=== PATIENT | male | born 1985 | race African-American/Black ===

== ENCOUNTER 2017-03-07 14:12 | Emergency (ER) | payer OTHER ==
[~2017-03-07] VITALS: Ht 180.3 cm; Wt 130.9 kg
[2017-03-07] MEDS ORDERED: PROP20 PO (15:14)
[2017-03-07] MEDS ORDERED: DIVA125T PO (15:14)
[2017-03-07 15:32] LABS: BASOPHILS % (AUTO) 0.4 % (0.0-2.0); HEMATOCRIT 43.9 % (41-53); HEMOGLOBIN 14.7 g/dL (13.5-17.5); LYMPHOCYTES % (AUTO) 30.5 % (22.0-44.0); MEAN CORPUSCULAR HGB CONC 33.5 G/dL (31.0-37.0); MEAN CORPUSCULAR VOLUME 87 fL (80-100); MONOCYTES # (AUTO) 0.3 K/uL (0.1-1.0); MONOCYTES % (AUTO) 4.2 % (2.0-9.0); NEUTROPHILS # (AUTO) 4.2 K/uL (1.8-7.7); NEUTROPHILS % (AUTO) 62.9 % (40.0-70.0); PLATELET COUNT (AUTO) 195 K/uL (150-450); RED BLOOD CELL COUNT(AUTO) 5.07 MIL/uL (4.50-5.90); RED CELL DISTRIBUTION WIDTH 15.7 % (11.5-14.5); WHITE BLOOD COUNT (AUTO) 6.6 K/uL (4.5-11.0)
[2017-03-07 15:37] LABS: ANION GAP 6 mmol/L (8-16); CALCIUM, TOTAL 9.5 mg/dL (8.8-10.5); CARBON DIOXIDE 30 mmol/L (22-29); CHLORIDE 101 mmol/L (98-107); CREATININE 0.95 mg/dL (0.60-1.30); GLOMERULAR FILTR. RATE CALC > 60 mL/min (>60); POTASSIUM 4.1 mmol/L (3.5-5.1); SODIUM SERUM 137 mmol/L (136-145); UREA NITROGEN, BLOOD 12 mg/dL (7-18)
[2017-03-07 15:43] LABS: ALANINE AMINOTRANSFERASE 13 U/L (12-78); ALBUMIN 4.2 g/dL (3.4-5.0); ASPARTATE AMINOTRANSFERASE 5 U/L (15-37); BILIRUBIN,TOTAL 0.6 mg/dL (0.1-1.0)
[2017-03-07 16:38] LABS: VALPROIC ACID 88 mcg/mL (50-100)
[2017-03-07] MEDS ORDERED: LORazepam 2 MG TABLET PO ONE (16:45)
[2017-03-07] MEDS ORDERED: HALOPERIDOL 5 MG TABLET PO ONE (16:45)
[2017-03-07 17:47] VITALS: BP 117/63
== END 2017-03-07 18:24 | disposition home or self-care (01) ==
LOC: EMS 14:15
DX: F20.9 Schizophrenia, unspecified (principal); R45.851 Suicidal ideations; F32.9 Major depressive disorder, single episode, unspecified
CPT/HCPCS: 36415; 80053; 80164; 80307; 85025; 99284; G0480

== ENCOUNTER 2018-11-14 16:48 | Inpatient (IN) | payer MEDICAID, OTHER ==
[~2018-11-14] VITALS: Ht 177.8 cm; Wt 100.2 kg
[~2018-11-14 16:48] MED LIST: DIVA125T32 PO; PROP20TA18 PO
[2018-11-14] MEDS ORDERED: HALOPERIDOL 5 MG TABLET PO PRN (19:45)
[2018-11-14] MEDS ORDERED: LORazepam 2 MG TABLET PO PRN (19:45)
[2018-11-14] MEDS ORDERED: HALOPERIDOL 5 MG TABLET PO ONE (19:45)
[2018-11-14] MEDS ORDERED: ZOLPIDEM TARTRATE 10 MG TABLET PO PRN (19:45)
[2018-11-14 19:55] LABS: BASOPHILS % (AUTO) 0.8 % (0.0-2.0); EOSINOPHILS % (AUTO) 0.9 % (1.0-6.0); HEMATOCRIT 47.9 % (41-53); MEAN CORPUSCULAR HEMOGLOBIN 29.7 pg (26.0-34.0); MEAN CORPUSCULAR HGB CONC 33.5 G/dL (31.0-37.0); MEAN CORPUSCULAR VOLUME 89 fL (80-100); MONOCYTES # (AUTO) 0.5 K/uL (0.1-1.0); MONOCYTES % (AUTO) 4.8 % (2.0-9.0); NEUTROPHILS # (AUTO) 7.2 K/uL (1.8-7.7); NEUTROPHILS % (AUTO) 73.5 % (40.0-70.0); PLATELET COUNT (AUTO) 218 K/uL (150-450); RED CELL DISTRIBUTION WIDTH 14.6 % (11.5-14.5)
[2018-11-14 20:08] LABS: AMPHET/METH SCREEN,URINE POSITIVE (NEGATIVE); BARBITURATE SCREEN, URINE NEGATIVE (NEGATIVE); BENZODIAZEPINES SCREEN,URINE NEGATIVE (NEGATIVE); CANNABINOID SCREEN,URINE POSITIVE (NEGATIVE); COCAINE SCREEN,URINE NEGATIVE (NEGATIVE); METHADONE SCREEN, URINE NEGATIVE (NEGATIVE); OPIATE SCREEN,URINE NEGATIVE (NEGATIVE)
[2018-11-14 20:15] LABS: ANION GAP 12 mmol/L (8-16); CALCIUM, TOTAL 9.5 mg/dL (8.8-10.5); CARBON DIOXIDE 25 mmol/L (22-29); CHLORIDE 102 mmol/L (98-107); CREATININE 1.02 mg/dL (0.60-1.30); GLOMERULAR FILTR. RATE CALC > 60 mL/min (>60); GLUCOSE,RANDOM 105 mg/dL (70-110); POTASSIUM 4.2 mmol/L (3.5-5.1); SODIUM SERUM 139 mmol/L (136-145); UREA NITROGEN, BLOOD 14 mg/dL (7-18)
[2018-11-14 20:19] LABS: PHENCYCLIDINE SCREEN,URINE NEGATIVE (NEGATIVE)
[2018-11-14 20:30] LABS: ALANINE AMINOTRANSFERASE 11 U/L (12-78); ALBUMIN 4.3 g/dL (3.4-5.0); ALKALINE PHOSPHATASE 62 U/L (46-116); BILIRUBIN,TOTAL 0.8 mg/dL (0.1-1.0); CHOL/HDL RATIO 5.1 (4.2-7.3); CHOLESTEROL 118 mg/dL (131-200); FREE T4 (FREE THYROXINE) 0.92 ng/dL (0.76-1.46); HDL CHOLESTEROL 23 mg/dL (40-60); LDL CHOL (CALC.) 29 mg/dL (0-130); TOTAL PROTEIN, SERUM 7.4 g/dL (6.4-8.2); TRIGLYCERIDES 328 mg/dL (15-150)
[2018-11-14 20:45] LABS: ASPARTATE AMINOTRANSFERASE 15 U/L (15-37); VALPROIC ACID < 3 mcg/mL (50-100)
[2018-11-14 21:37] VITALS: BP 129/62
[2018-11-15 08:05] VITALS: BP 121/65
[2018-11-15] MEDS ORDERED: ONDANSETRON HCL 4 MG TABLET PO PRN (10:00)
[2018-11-15] MEDS ORDERED: LOPERAMIDE HCL 2 MG CAPSULE PO PRN (10:00)
[2018-11-15] MEDS ORDERED: ACETAMINOPHEN 325 MG TABLET PO PRN (10:00)
[2018-11-15] MEDS ORDERED: IBUPROFEN 600 MG TABLET PO PRN (10:00)
[2018-11-15] MEDS ORDERED: BACITRACIN 28.4 GM OINTMENT TP PRN (10:00)
[2018-11-15] MEDS ORDERED: BENZOCAINE/MENTHOL LOZENGE MM PRN (10:00)
[2018-11-15] MEDS ORDERED: ALBUTEROL SULFATE HFA 90 MCG/PUFF 8 GM INHALER IH PRN (10:00)
[2018-11-15] MEDS ORDERED: MAGNESIUM HYDROXIDE SUSPENSION 30 ML UDCUP PO PRN (10:00)
[2018-11-15] MEDS ORDERED: CloNIDine HCL 0.1 MG TABLET PO PRN (10:00)
[2018-11-15] MEDS ORDERED: MAG HYDROX/AL HYDROX/SIMETH ES 30 ML SUSPENSION UDCUP PO PRN (10:00)
[2018-11-15] MEDS ORDERED: PETROLATUM,WHITE 28 GM JELLY TP PRN (10:00)
[2018-11-15] MEDS: RisperiDONE 1 MG TABLET PO SCH (16:30)
[2018-11-15 16:42] VITALS: BP 117/71
[2018-11-16 08:10] VITALS: BP 111/75
[2018-11-16] MEDS ORDERED: OMEPRAZOLE 20 MG CAPSULE PO SCH (09:00)
[2018-11-16] MEDS ORDERED: DOCUSATE SODIUM 100 MG CAPSULE PO SCH (09:00)
[2018-11-16] MEDS: RisperiDONE 1 MG TABLET PO SCH ×2 (10:18→16:19)
[2018-11-16] MEDS ORDERED: RISP1 PO (19:36)
[2018-11-16] MEDS ORDERED: DSS100 PO (19:37)
[2018-11-16] MEDS ORDERED: OMEP20 PO (19:37)
== END 2018-11-16 20:45 | disposition home or self-care (01) | DRG 750 ==
LOC: EMS 16:51 → 3EI 20:00
PROVIDERS: ADMIT Psychiatry & Neurology Psychiatry; ATTEND Psychiatry & Neurology Psychiatry
DX: F25.9 Schizoaffective disorder, unspecified (principal); R45.851 Suicidal ideations; Z91.14 Patient's other noncompliance with medication regimen; E78.1 Pure hyperglyceridemia; F17.200 Nicotine dependence, unspecified, uncomplicated; F41.9 Anxiety disorder, unspecified; G47.00 Insomnia, unspecified; K21.9 Gastro-esophageal reflux disease without esophagitis; K59.00 Constipation, unspecified
CPT/HCPCS: 83036; 84439; 84443; 86592; 87491; 87591; 90686; G0480

== ENCOUNTER 2018-12-15 13:27 | Inpatient (IN) | payer MEDICAID, OTHER ==
[~2018-12-15] VITALS: Ht 177.8 cm; Wt 99.7 kg
[~2018-12-15 13:27] MED LIST changes: -DIVA125T32 PO; +DSS100 PO; +OMEP20 PO; -PROP20TA18 PO; +RISP1 PO
[2018-12-15] MEDS ORDERED: HALO1 PO (13:43)
[2018-12-15] MEDS ORDERED: SERT50TA12 PO (13:43)
[2018-12-15] MEDS ORDERED: GABA-529 PO (13:43)
[2018-12-15] MEDS ORDERED: TRAZ-220 PO (13:43)
[2018-12-15] MEDS ORDERED: LORazepam 2 MG/ML VIAL IM ONE (13:45)
[2018-12-15] MEDS ORDERED: DiphenhydrAMINE HCL 50 MG/ML VIAL IM ONE (13:45)
[2018-12-15] MEDS ORDERED: HALOPERIDOL LACTATE 5 MG/ML VIAL IM ONE (13:45)
[2018-12-15 13:54] LABS: BASOPHILS % (AUTO) 0.6 % (0.0-2.0); EOSINOPHILS % (AUTO) 1.6 % (1.0-6.0); HEMATOCRIT 49.9 % (41-53); HEMOGLOBIN 16.4 g/dL (13.5-17.5); LYMPHOCYTES # (AUTO) 1.3 K/uL (1.0-4.8); LYMPHOCYTES % (AUTO) 16.9 % (22.0-44.0); MEAN CORPUSCULAR HEMOGLOBIN 29.3 pg (26.0-34.0); MEAN CORPUSCULAR HGB CONC 32.9 G/dL (31.0-37.0); MEAN CORPUSCULAR VOLUME 89 fL (80-100); MONOCYTES # (AUTO) 0.4 K/uL (0.1-1.0); MONOCYTES % (AUTO) 4.7 % (2.0-9.0); NEUTROPHILS # (AUTO) 5.8 K/uL (1.8-7.7); NEUTROPHILS % (AUTO) 76.2 % (40.0-70.0); PLATELET COUNT (AUTO) 200 K/uL (150-450); RED CELL DISTRIBUTION WIDTH 14.5 % (11.5-14.5)
[2018-12-15 14:14] LABS: ANION GAP 11 mmol/L (8-16); CALCIUM, TOTAL 9.3 mg/dL (8.8-10.5); CARBON DIOXIDE 26 mmol/L (22-29); CHLORIDE 101 mmol/L (98-107); CREATININE 0.97 mg/dL (0.60-1.30); GLOMERULAR FILTR. RATE CALC > 60 mL/min (>60); GLUCOSE,RANDOM 105 mg/dL (70-110); SODIUM SERUM 138 mmol/L (136-145); UREA NITROGEN, BLOOD 9 mg/dL (7-18)
[2018-12-15 14:14] LABS: AMPHET/METH SCREEN,URINE NEGATIVE (NEGATIVE); BARBITURATE SCREEN, URINE NEGATIVE (NEGATIVE); BENZODIAZEPINES SCREEN,URINE NEGATIVE (NEGATIVE); CANNABINOID SCREEN,URINE NEGATIVE (NEGATIVE); COCAINE SCREEN,URINE NEGATIVE (NEGATIVE); METHADONE SCREEN, URINE NEGATIVE (NEGATIVE); OPIATE SCREEN,URINE NEGATIVE (NEGATIVE)
[2018-12-15 14:17] LABS: PHENCYCLIDINE SCREEN,URINE NEGATIVE (NEGATIVE)
[2018-12-15 14:20] LABS: ALANINE AMINOTRANSFERASE 17 U/L (12-78); ALBUMIN 4.5 g/dL (3.4-5.0); ALKALINE PHOSPHATASE 52 U/L (46-116); ASPARTATE AMINOTRANSFERASE 15 U/L (15-37); BILIRUBIN,TOTAL 0.5 mg/dL (0.1-1.0)
[2018-12-15 19:55] LABS: APPEARANCE,URINE CLEAR (CLEAR); BILIRUBIN,URINE NEGATIVE (NEGATIVE); GLUCOSE, URINE (UA) NEGATIVE (NEGATIVE); KETONES,URINE NEGATIVE (NEGATIVE); LEUKOCYTE ESTERASE ,URINE NEGATIVE (NEGATIVE); NITRATE,URINE NEGATIVE (NEGATIVE); OCCULT BLOOD,URINE NEGATIVE (NEGATIVE); PROTEIN,URINE NEGATIVE (NEGATIVE); UROBILINOGEN,URINE 0.2 mg/dL (<=1.0)
[2018-12-16 05:36] LABS: CHOL/HDL RATIO 4.5 (4.2-7.3)
[2018-12-16] MEDS: HALOPERIDOL 5 MG TABLET PO PRN (07:45)
[2018-12-16] MEDS: LORazepam 2 MG TABLET PO PRN (07:45)
[2018-12-16 16:27] VITALS: BP 131/88
[2018-12-16] MEDS ORDERED: ALBUTEROL SULFATE HFA 90 MCG/PUFF 8 GM INHALER IH PRN (18:00)
[2018-12-16] MEDS: NICOTINE 21 MG/24 HOUR PATCH TD SCH (18:36)
[2018-12-17 00:15] VITALS: BP 129/67
[2018-12-17] MEDS: ZOLPIDEM TARTRATE 10 MG TABLET PO PRN (00:20)
[2018-12-17] MEDS: HALOPERIDOL 5 MG TABLET PO PRN ×2 (00:20→09:10)
[2018-12-17] MEDS: OMEPRAZOLE 20 MG CAPSULE PO SCH (07:05)
[2018-12-17 08:00] VITALS: BP 118/64
[2018-12-17] MEDS: NICOTINE 21 MG/24 HOUR PATCH TD SCH (09:10)
[2018-12-17] MEDS: LORazepam 2 MG TABLET PO PRN (09:10)
[2018-12-17] MEDS: GABAPENTIN 100 MG CAPSULE PO SCH (09:10)
[2018-12-17] MEDS: SERTRALINE HCL 50 MG TABLET PO SCH (12:45)
[2018-12-17] MEDS: RisperiDONE 1 MG TABLET PO SCH (16:03)
[2018-12-17 16:30] VITALS: BP 120/74
[2018-12-17] MEDS ORDERED: TraZODone HCL 100 MG TABLET PO SCH (21:00)
[2018-12-18 01:26] VITALS: BP 117/63
[2018-12-18] MEDS: ZOLPIDEM TARTRATE 10 MG TABLET PO PRN (01:41)
[2018-12-18] MEDS: OMEPRAZOLE 20 MG CAPSULE PO SCH (07:00)
[2018-12-18] MEDS: RisperiDONE 1 MG TABLET PO SCH (07:56)
[2018-12-18] MEDS: NICOTINE 21 MG/24 HOUR PATCH TD SCH (07:56)
[2018-12-18] MEDS: HALOPERIDOL 5 MG TABLET PO PRN ×2 (07:56→12:46)
[2018-12-18] MEDS: SERTRALINE HCL 50 MG TABLET PO SCH (07:56)
[2018-12-18] MEDS: GABAPENTIN 100 MG CAPSULE PO SCH (07:56)
[2018-12-18] MEDS: LORazepam 2 MG TABLET PO PRN (07:56)
[2018-12-18 08:00] VITALS: BP 117/60
== END 2018-12-18 15:30 | disposition home or self-care (01) | DRG 750 ==
LOC: EMS 13:28 → 3EC 12-16 14:38
PROVIDERS: ADMIT Psychiatry & Neurology Psychiatry; ATTEND Psychiatry & Neurology Psychiatry
DX: F20.9 Schizophrenia, unspecified (principal); E78.1 Pure hyperglyceridemia; F17.200 Nicotine dependence, unspecified, uncomplicated; G47.00 Insomnia, unspecified; K21.9 Gastro-esophageal reflux disease without esophagitis; K59.00 Constipation, unspecified
CPT/HCPCS: 87081; 96372; G0480; J1200; J1630; J2060

== ENCOUNTER 2020-05-11 00:38 | Inpatient (IN) | payer MEDICAID, OTHER ==
[~2020-05-11] VITALS: Ht 177.8 cm; Wt 90.4 kg
[~2020-05-11 00:38] MED LIST changes: -DSS100 PO; +GABA-1216 PO; -OMEP20 PO; -RISP1 PO; +RISP1TAB27 PO; +SERT50TA12 PO; +TRAZ-257 PO
[2020-05-11 02:32] LABS: BASOPHILS % (AUTO) 0.7 % (0.0-2.0); EOSINOPHILS % (AUTO) 1.2 % (1.0-6.0); HEMOGLOBIN 14.2 g/dL (13.5-17.5); LYMPHOCYTES # (AUTO) 1.7 K/uL (1.0-4.8); LYMPHOCYTES % (AUTO) 15.8 % (22.0-44.0); MEAN CORPUSCULAR HEMOGLOBIN 29.7 pg (26.0-34.0); MEAN CORPUSCULAR HGB CONC 33.8 G/dL (31.0-37.0); MEAN CORPUSCULAR VOLUME 88 fL (80-100); MONOCYTES # (AUTO) 0.8 K/uL (0.1-1.0); MONOCYTES % (AUTO) 7.3 % (2.0-9.0); NEUTROPHILS # (AUTO) 8.2 K/uL (1.8-7.7); PLATELET COUNT (AUTO) 198 K/uL (150-450); RED BLOOD CELL COUNT(AUTO) 4.79 MIL/uL (4.50-5.90); RED CELL DISTRIBUTION WIDTH 14.4 % (11.5-14.5)
[2020-05-11 02:40] LABS: ANION GAP 6 mmol/L (8-16); CARBON DIOXIDE 28 mmol/L (22-29); CHLORIDE 99 mmol/L (98-107); CREATININE 0.98 mg/dL (0.60-1.30); GLOMERULAR FILTR. RATE CALC > 60 mL/min (>60); GLUCOSE,RANDOM 89 mg/dL (70-110); POTASSIUM 3.3 mmol/L (3.5-5.1); SODIUM SERUM 133 mmol/L (136-145); UREA NITROGEN, BLOOD 14 mg/dL (7-18)
[2020-05-11 02:49] LABS: LACTIC ACID 1.7 mmol/L (0.4-2.0)
[2020-05-11 03:00] LABS: ALANINE AMINOTRANSFERASE 23 U/L (12-78); ALKALINE PHOSPHATASE 60 U/L (46-116); ASPARTATE AMINOTRANSFERASE 26 U/L (15-37); BILIRUBIN,TOTAL 1.2 mg/dL (0.1-1.0); CREATINE KINASE, TOTAL ONLY 749 U/L (39-308); TOTAL PROTEIN, SERUM 7.5 g/dL (6.4-8.2)
[2020-05-11] MEDS ORDERED: LORazepam 2 MG/ML VIAL IM ONE ×2 (03:30→20:00)
[2020-05-11] MEDS ORDERED: DiphenhydrAMINE HCL 50 MG/ML VIAL IM ONE ×2 (03:30→20:00)
[2020-05-11] MEDS ORDERED: HALOPERIDOL LACTATE 5 MG/ML VIAL IM ONE ×2 (03:30→20:00)
[2020-05-11] MEDS ORDERED: POTASSIUM CHLORIDE 10% 40 MEQ/30 ML LIQUID UDCUP PO ONE ×2 (05:45→10:00)
[2020-05-11 05:57] LABS: APPEARANCE,URINE CLEAR (CLEAR); BILIRUBIN,URINE NEGATIVE (NEGATIVE); GLUCOSE, URINE (UA) NEGATIVE (NEGATIVE); KETONES,URINE TRACE mg/dL (NEGATIVE); LEUKOCYTE ESTERASE ,URINE NEGATIVE (NEGATIVE); NITRATE,URINE NEGATIVE (NEGATIVE); OCCULT BLOOD,URINE NEGATIVE (NEGATIVE); PROTEIN,URINE NEGATIVE (NEGATIVE); UROBILINOGEN,URINE 0.2 mg/dL (<=1.0)
[2020-05-11 06:03] LABS: AMPHET/METH SCREEN,URINE NEGATIVE (NEGATIVE); BARBITURATE SCREEN, URINE NEGATIVE (NEGATIVE); BENZODIAZEPINES SCREEN,URINE NEGATIVE (NEGATIVE); CANNABINOID SCREEN,URINE NEGATIVE (NEGATIVE); COCAINE SCREEN,URINE NEGATIVE (NEGATIVE); METHADONE SCREEN, URINE NEGATIVE (NEGATIVE); OPIATE SCREEN,URINE NEGATIVE (NEGATIVE); PHENCYCLIDINE SCREEN,URINE NEGATIVE (NEGATIVE)
[2020-05-11 08:15] VITALS: BP 112/85
[2020-05-11] MEDS ORDERED: OMEPRAZOLE 20 MG CAPSULE PO PRN (08:15)
[2020-05-11] MEDS ORDERED: MAG HYDROX/AL HYDROX/SIMETH ES 30 ML SUSPENSION UDCUP PO PRN (08:15)
[2020-05-11] MEDS ORDERED: CloNIDine HCL 0.1 MG TABLET PO PRN (08:15)
[2020-05-11] MEDS ORDERED: ACETAMINOPHEN 325 MG TABLET PO PRN (08:15)
[2020-05-11] MEDS ORDERED: DOCUSATE SODIUM 100 MG CAPSULE PO PRN (08:15)
[2020-05-11] MEDS ORDERED: ONDANSETRON HCL 4 MG TABLET PO PRN (08:15)
[2020-05-11] MEDS ORDERED: LOPERAMIDE HCL 2 MG CAPSULE PO PRN (08:15)
[2020-05-11] MEDS ORDERED: BACITRACIN 28 GM OINTMENT TP PRN (08:15)
[2020-05-11] MEDS ORDERED: IBUPROFEN 600 MG TABLET PO PRN (08:15)
[2020-05-11] MEDS ORDERED: BENZOCAINE/MENTHOL LOZENGE PO PRN (08:15)
[2020-05-11] MEDS ORDERED: PETROLATUM,WHITE 28 GM JELLY TP PRN (08:15)
[2020-05-11] MEDS ORDERED: ALBUTEROL SULFATE HFA 90 MCG/PUFF 8 GM INHALER IH PRN (08:15)
[2020-05-11] MEDS ORDERED: MAGNESIUM HYDROXIDE SUSPENSION 30 ML UDCUP PO PRN (08:15)
[2020-05-11 11:08] VITALS: BP 112/85
[2020-05-11 16:15] VITALS: BP 119/67
[2020-05-11] MEDS: RisperiDONE 2 MG TABLET PO SCH (16:26)
[2020-05-11] MEDS: DIVALPROEX SODIUM 500 MG DR TABLET PO SCH (16:26)
[2020-05-11] MEDS ORDERED: DiphenhydrAMINE HCL 50 MG/ML VIAL ONE (19:45)
[2020-05-11] MEDS ORDERED: HALOPERIDOL LACTATE 5 MG/ML VIAL ONE (19:45)
[2020-05-11] MEDS ORDERED: LORazepam 2 MG/ML VIAL ONE (19:45)
[2020-05-12 07:37] LABS: CHOL/HDL RATIO 3.2 (4.2-7.3); POTASSIUM 4.2 mmol/L (3.5-5.1)
[2020-05-12] MEDS: RisperiDONE 2 MG TABLET PO SCH ×2 (08:33→16:08)
[2020-05-12] MEDS: DIVALPROEX SODIUM 500 MG DR TABLET PO SCH ×2 (08:33→16:08)
[2020-05-12 09:22] VITALS: BP 117/66
[2020-05-12] MEDS: LORazepam 2 MG TABLET PO PRN (09:31)
[2020-05-12] MEDS: HALOPERIDOL 5 MG TABLET PO PRN (09:32)
[2020-05-12 16:08] VITALS: BP 106/70
[2020-05-13] MEDS: HALOPERIDOL 5 MG TABLET PO PRN ×2 (07:30→12:48)
[2020-05-13] MEDS: DIVALPROEX SODIUM 500 MG DR TABLET PO SCH ×2 (07:30→17:04)
[2020-05-13] MEDS: RisperiDONE 2 MG TABLET PO SCH ×2 (07:30→17:04)
[2020-05-13] MEDS: LORazepam 2 MG TABLET PO PRN ×2 (07:30→12:48)
[2020-05-13 08:09] VITALS: BP 137/83
[2020-05-13 16:09] VITALS: BP 131/69
[2020-05-14] MEDS: DIVALPROEX SODIUM 500 MG DR TABLET PO SCH ×2 (07:53→16:27)
[2020-05-14] MEDS: RisperiDONE 2 MG TABLET PO SCH ×2 (07:53→16:27)
[2020-05-14] MEDS: HALOPERIDOL 5 MG TABLET PO PRN (07:53)
[2020-05-14] MEDS: LORazepam 2 MG TABLET PO PRN ×2 (07:53→18:06)
[2020-05-14 09:42] VITALS: BP 99/56
[2020-05-14 16:52] VITALS: BP 140/93
[2020-05-15 06:40] LABS: BASOPHILS % (AUTO) 0.7 % (0.0-2.0); EOSINOPHILS % (AUTO) 3.4 % (1.0-6.0); HEMATOCRIT 43.5 % (41-53); HEMOGLOBIN 14.5 g/dL (13.5-17.5); LYMPHOCYTES # (AUTO) 1.4 K/uL (1.0-4.8); LYMPHOCYTES % (AUTO) 27.8 % (22.0-44.0); MEAN CORPUSCULAR HEMOGLOBIN 29.6 pg (26.0-34.0); MEAN CORPUSCULAR HGB CONC 33.3 G/dL (31.0-37.0); MEAN CORPUSCULAR VOLUME 89 fL (80-100); MONOCYTES # (AUTO) 0.2 K/uL (0.1-1.0); MONOCYTES % (AUTO) 4.6 % (2.0-9.0); NEUTROPHILS # (AUTO) 3.3 K/uL (1.8-7.7); NEUTROPHILS % (AUTO) 63.5 % (40.0-70.0); PLATELET COUNT (AUTO) 207 K/uL (150-450); RED BLOOD CELL COUNT(AUTO) 4.89 MIL/uL (4.50-5.90); RED CELL DISTRIBUTION WIDTH 14.5 % (11.5-14.5)
[2020-05-15 06:58] LABS: ALANINE AMINOTRANSFERASE 18 U/L (12-78); ALBUMIN 3.7 g/dL (3.4-5.0); ALKALINE PHOSPHATASE 53 U/L (46-116); ANION GAP 8 mmol/L (8-16); ASPARTATE AMINOTRANSFERASE 13 U/L (15-37); BILIRUBIN,TOTAL 0.5 mg/dL (0.1-1.0); CALCIUM, TOTAL 9.3 mg/dL (8.8-10.5); CARBON DIOXIDE 30 mmol/L (22-29); CHLORIDE 101 mmol/L (98-107); CREATININE 0.93 mg/dL (0.60-1.30); GLOMERULAR FILTR. RATE CALC > 60 mL/min (>60); GLUCOSE,RANDOM 109 mg/dL (70-110); PHOSPHORUS 2.8 mg/dL (2.5-4.9); POTASSIUM 4.6 mmol/L (3.5-5.1); SODIUM SERUM 139 mmol/L (136-145); TOTAL PROTEIN, SERUM 6.4 g/dL (6.4-8.2); UREA NITROGEN, BLOOD 15 mg/dL (7-18); VALPROIC ACID 65 mcg/mL (50-100)
[2020-05-15] MEDS: RisperiDONE 2 MG TABLET PO SCH ×2 (07:52→16:30)
[2020-05-15] MEDS: DIVALPROEX SODIUM 500 MG DR TABLET PO SCH ×2 (07:52→16:30)
[2020-05-15 08:17] VITALS: BP 125/72
[2020-05-15 16:04] VITALS: BP 147/98
[2020-05-15] MEDS: LORazepam 2 MG TABLET PO PRN (16:30)
[2020-05-15] MEDS: ZOLPIDEM TARTRATE 10 MG TABLET PO PRN (22:33)
[2020-05-16] MEDS: LORazepam 2 MG TABLET PO PRN ×2 (02:13→12:22)
[2020-05-16] MEDS: HALOPERIDOL 5 MG TABLET PO PRN ×2 (02:13→12:22)
[2020-05-16] MEDS: DIVALPROEX SODIUM 500 MG DR TABLET PO SCH ×2 (08:17→16:06)
[2020-05-16] MEDS: RisperiDONE 2 MG TABLET PO SCH ×2 (08:17→16:06)
[2020-05-16 08:30] VITALS: BP 148/79
[2020-05-16 16:06] VITALS: BP 142/88
[2020-05-17 08:00] VITALS: BP 143/79
[2020-05-17] MEDS: RisperiDONE 2 MG TABLET PO SCH ×2 (08:00→16:34)
[2020-05-17] MEDS: DIVALPROEX SODIUM 500 MG DR TABLET PO SCH ×2 (08:00→16:34)
[2020-05-17] MEDS: LORazepam 2 MG TABLET PO PRN ×2 (08:21→15:33)
[2020-05-17 16:08] VITALS: BP 147/99
[2020-05-18] MEDS: ZOLPIDEM TARTRATE 10 MG TABLET PO PRN (00:07)
[2020-05-18] MEDS: HALOPERIDOL 5 MG TABLET PO PRN ×2 (00:08→07:47)
[2020-05-18] MEDS: LORazepam 2 MG TABLET PO PRN ×2 (00:08→09:06)
[2020-05-18] MEDS: RisperiDONE 2 MG TABLET PO SCH ×2 (07:46→16:08)
[2020-05-18] MEDS: DIVALPROEX SODIUM 500 MG DR TABLET PO SCH ×2 (07:46→16:08)
[2020-05-18 08:00] VITALS: BP 137/83
[2020-05-18] MEDS ORDERED: DIVA-112 PO (13:22)
== END 2020-05-18 17:30 | disposition home or self-care (01) | DRG 750 ==
LOC: EMS 00:38 → 3EC 07:38
PROVIDERS: ADMIT Psychiatry & Neurology Psychiatry; ATTEND Psychiatry & Neurology Psychiatry
DX: F20.0 Paranoid schizophrenia (principal); F17.210 Nicotine dependence, cigarettes, uncomplicated; Z20.828 Contact with and (suspected) exposure to other viral communicable diseases; F19.10 Other psychoactive substance abuse, uncomplicated; F10.10 Alcohol abuse, uncomplicated; F32.9 Major depressive disorder, single episode, unspecified; F41.9 Anxiety disorder, unspecified; G47.00 Insomnia, unspecified; K21.9 Gastro-esophageal reflux disease without esophagitis; E78.1 Pure hyperglyceridemia; E87.6 Hypokalemia; G40.909 Epilepsy, unspecified, not intractable, without status epilepticus; F15.10 Other stimulant abuse, uncomplicated; K59.00 Constipation, unspecified; Z59.0 Homelessness; Z79.899 Other long term (current) drug therapy
CPT/HCPCS: 51701; 83605; 83735; 84100; 84132; 84295; 87426; 99291; G0480; J1200; J1630; J2060